=== PATIENT | female | born 2005 | race Caucasian/White ===

== ENCOUNTER 2023-07-19 16:13 | Emergency (ER) | payer BC, SELFPAY ==
[2023-07-19 16:14] VITALS: PULSE 86; RESP 14; TEMP 36.6; O2SAT 100; BMI 30.2
--- NOTE | 2023-07-19 16:42 | EDS_ITS ---
HPI <SIMBA Crow - Last Filed: 07/19/23 19:44> History of Present Illness Chief Complaint: Flank Pain Narrative Narrative: Patient is a 18-year-old female with no significant medical history presents to the [facility] part with 2 days of dysuria, right-sided flank pain. Patient states she drank a bunch of cranberry juice last evening, then had vomiting around for the morning. She states she is having intermittent right-sided flank pain, states she might of had a fever for 2 hours however today she is having no fevers. Patient is concerned she might have a UTI. She is here for evaluation [facility] <SIMBA Crow - Last Filed: 07/19/23 19:44> [facility] Home Medications ondansetron 4 mg disintegrating tablet 4 mg PO Q8H PRN PRN Nausea #10 tabs 07/19/23 [Rx Last Taken Unknown] sulfamethoxazole 800 mg-trimethoprim 160 mg tablet (Bactrim DS) 1 tab PO BID 7 days #14 tabs 07/19/23 [Rx Last Taken Unknown] Allergy/AdvReac Type Severity Reaction Status Date / Time No Known Allergies Allergy Verified 07/19/23 16:14 Social History Smoking Status: Never smoker ROS <SIMBA Crow - Last Filed: 07/19/23 19:44> ROS ED ROS Narrative Constitutional: Negative for fever, chills, weight loss, weakness Eyes: Negative for vision loss, vision change, double vision ENT: Negative for any sore throat, ear pain, congestion Cardiovascular: Negative for any chest pain, tightness, palpitations Respiratory: Negative for any cough, sputum production, hemoptysis, dyspnea, dyspnea on exertion, orthopnea Gastrointestinal: Negative for any abdominal pain, nausea, vomiting, diarrhea, constipation, blood in stool, blood in vomit : Negative for any urinary frequency, retention, blood in urine. No dysuria, right-sided flank pain Muscle skeletal: Negative for any myalgias, arthralgias, neck pain, back pain Neurological: Negative for any headache, syncope, paresthesias, dizziness Skin: Negative for any rashes, lumps, itching, abrasions, lacerations Psychiatric: Negative for any depression, anxiety, stress, suicidal ideation, homicidal ideation Hematologic: Negative for any easy bruising, excessive bruising, easy bleeding Allergies: Negative for any eczema, hives, rash EXAM <SIMBA Crow - Last Filed: 07/19/23 19:44> Physical Exam Narrative Exam Narrative: Vital signs reviewed. HEET: Head normocephalic atraumatic, TMs clear bilaterally. Posterior pharynx is clear, moist mucous membranes. Nares clear bilaterally. Neck: Supple with no lymphadenopathy or tenderness. No signs of meningismus. Cardiac: Regular rate and rhythm no murmurs gallops or rubs, equal peripheral pulses bilaterally. Respiratory: Lungs clear to auscultation bilaterally. No chest tenderness. Abdomen: Soft, nontender, nondistended. No abdominal bruit or pulsatile masses. No hepatosplenomegaly Extremities: No peripheral edema, no signs of gross trauma or deformity. Active full range of motion of all extremities. Neuro: Cranial nerves II through XII intact, no focal neurological deficits. Skin: Clean dry and intact with no rash, purpura, petechiae, vesicles or pustules. Backs/flank: Patient had slight right-sided CVA tenderness. No midline spinal tenderness, no deformity. Psych: Normal mood and affect. No SI, HI or acute psychosis. Const Vital Signs: 07/19/23 16:14 Temperature 97.8 F Temperature Source Temporal Pulse Rate 86 Respiratory Rate 14 Pulse Ox 100 Oxygen Delivery Method Room Air <Dr. Ran Hawkins DO - Last Filed: 07/19/23 22:32> Physical Exam Const Vital Signs: 07/19/23 16:14 Temperature 97.8 F Temperature Source Temporal Pulse Rate 86 Respiratory Rate 14 Pulse Ox 100 Oxygen Delivery Method Room Air [facility] <SIMBA Crow - Last Filed: 07/19/23 19:44> [facility] Lab Data Labs: Laboratory Results - last 24 hr 07/19/23 07/19/23 16:53 19:06 WBC 11.9 H RBC 4.67 Hgb 13.1 Hct 40.0 MCV 85.7 MCH 28.1 MCHC 32.8 RDW Std Deviation 40.0 RDW Coeff of [place] 13.0 Plt Count 307 MPV 10.9 Immature Gran % (Auto) 0.300 Neut % (Auto) 73.7 H Lymph % (Auto) 17.0 L [place] % (Auto) 8.4 Eos % (Auto) 0.3 Baso % (Auto) 0.3 Absolute Neuts (auto) 8.8 H Absolute Lymphs (auto) 2.03 Nucleated RBC % 0 Sodium 139 Potassium 3.6 Chloride 106 Carbon Dioxide 28.0 Anion Gap 5 BUN 10 Creatinine 0.84 Estim Creat Clear Calc 84.49 Est GFR (MDRD) Af Amer 111 Est GFR (MDRD) Non-Af 91 BUN/Creatinine Ratio 11.9 Glucose 99 Calcium 9.9 Serum , Qual NEGATIVE Urine Color SEE COMMENT BELOW Urine Clarity Sl. Cloudy Urine pH 6.0 Ur Specific [place] 1.015 Urine Protein 30 H Urine Glucose (UA) Normal Urine Ketones 5 H Urine Occult Blood 250 H Urine Nitrite Positive H Urine Bilirubin 3 H Urine Urobilinogen 8 H Ur Leukocyte Esterase 500 H Urine RBC 25-50 SEEN Urine WBC 50-100 SEEN Ur Squamous Epith Cells 0-5 SEEN Urine Bacteria RARE Urine Mucus 0 SEEN Radiography Diagnostic Testing: Clinical Impression(s) from Imaging Studies Abdomen/Pelvis CT 07/19/23 19:07 IMPRESSION: No acute appendicitis or bowel obstruction. Right ovarian cyst measuring 1.5 cm, remainder of the pelvic structures unremarkable. Mild fullness of the lymph nodes as described including the retroperitoneum and mesentery most compatible with nonspecific inflammatory response versus sequela of adenitis. Normal abdominal viscera. Electronically Signed: Nita Lang MD at 19:28 EST , Treatment and Re-Evaluation :: Patient appears generally well, patient appears nontoxic, vital signs are stable. Presenting to the emergency department with complaints of right-sided flank pain, dysuria that is been ongoing over the last 2 days. Differential diagnosis includes UTI, pyelonephritis, obstructing uropathy. At this time, basic urinalysis and urine hCG Preg will be completed. Patient's CBC shows a slight leukocytosis white blood count 11.9. Chemistries were unremarkable, serum was negative. Urinalysis will be sent for cu lture but did show rare bacteria moderate leukocytes, positive nitrates 0 blood as well as 25-50 RBCs. Second to this, patient received a CT scan of the abdomen pelvis without contrast is concerning for obstructing uropathy. Patient CT scan showed no acute appendicitis or bowel obstruction. Right ovarian cyst measuring 1.5 cm, mild fullness of the lymph nodes as described including the retroperitoneum and mesentery most compatible with nonspecific inflammatory spots versus sequelae of adenitis. Time, patient be treated with Bactrim twice a day for 7 days, she will maintain hydration, return for any worsening symptoms. All questions answered stable for discharge. <Dr. Ran Hawkins, DO - Last Filed: 07/19/23 22:32> [facility] Narrative Medical decision making narrative: Patient appears generally well, patient appears nontoxic, vital signs are stable. Presenting to the emergency department with complaints of right-sided flank pain, dysuria that is been ongoing over the last 2 days. Differential diagnosis includes UTI, pyelonephritis, obstructing uropathy. At this time, basic urinalysis and urine hCG Preg will be completed. Patient's CBC shows a slight leukocytosis white blood count 11.9. Chemistries were unremarkable, serum was negative. Urinalysis will be sent for culture but did show rare bacteria moderate leukocytes, positive nitrates 2050 blood as well as 25-50 RBCs. Second to this, patient received a CT scan of the abdomen pelvis without contrast is concerning for obstructing uropathy. Patient CT scan showed no acute appendicitis or bowel obstruction. Right ovarian cyst measuring 1.5 cm, mild fullness of the lymph nodes as described including the retroperitoneum and mesentery most compatible with nonspecific inflammatory spots versus sequelae of adenitis. Time, patient be treated with Bactrim twice a day for 7 days, she will maintain hydration, return for any worsening symptoms. All questions answered stable for discharge. Patient presenting with right flank pain she had dysuria as well. No history of kidney stones. She does have hematuria. She is also been taking Pyridium which does make her urine orange/red. Urinalysis shows some evidence of infection. CBC was obtained to assess for blood cell count, hemoglobin, lites. BMP to assess renal function and lites. These were ultimately unremarkable. CT of the abdomen pelvis without contrast shows a right ovarian cyst measuring 1.5 cm as well as some surrounding lymph nodes which could represent sequela of adenitis. Given this it is possible patient could have pyelonephritis with the pain that she is feeling could be from the ovarian cyst. She will be treated with Bactrim. Return precautions were discussed. Impression: 1. Pyelonephritis 2. Right-sided ovarian cyst 3. Hematuria Lab Data Attestation: I reviewed the patient's lab results. Labs: Laboratory Results - last 24 hr 07/19/23 07/19/23 16:53 19:06 WBC 11.9 H RBC 4.67 Hgb 13.1 Hct 40.0 MCV 85.7 MCH 28.1 MCHC 32.8 RDW Std Deviation 40.0 RDW Coeff of [place] 13.0 Plt Count 307 MPV 10.9 Immature Gran % (Auto) 0.300 Neut % (Auto) 73.7 H Lymph % (Auto) 17.0 L [place] % (Auto) 8.4 Eos % (Auto) 0.3 Baso % (Auto) 0.3 Absolute Neuts (auto) 8.8 H Absolute Lymphs (auto) 2.03 Nucleated RBC % 0 Sodium 139 Potassium 3.6 Chloride 106 Carbon Dioxide 28.0 Anion Gap 5 BUN 10 Creatinine 0.84 Estim Creat Clear Calc 84.49 Est GFR (MDRD) Af Amer 111 Est GFR (MDRD) Non-Af 91 BUN/Creatinine Ratio 11.9 Glucose 99 Calcium 9.9 Serum , Qual NEGATIVE Urine Color SEE COMMENT BELOW Urine Clarity Sl. Cloudy Urine pH 6.0 Ur Specific [place] 1.015 Urine Protein 30 H Urine Glucose (UA) Normal Urine Ketones 5 H Urine Occult Blood 250 H Urine Nitrite Positive H Urine Bilirubin 3 H Urine Urobilinogen 8 H Ur Leukocyte Esterase 500 H Urine RBC 25-50 SEEN Urine WBC 50-100 SEEN Ur Squamous Epith Cells 0-5 SEEN Urine Bacteria RARE Urine Mucus 0 SEEN Radiography Diagnostic Testing: Clinical Impression(s) from Imaging Studies Abdomen/Pelvis CT 07/19/23 19:07 IMPRESSION: No acute appendicitis or bowel obstruction. Right ovarian cyst measuring 1.5 cm, remainder of the pelvic structures unremarkable. Mild fullness of the lymph nodes as described including the retroperitoneum and mesentery most compatible with nonspecific inflammatory response versus sequela of adenitis. Normal abdominal viscera. Electronically Signed: Nita Lang MD at 19:28 EST , Discharge Plan Triage Chief Complaint: Flank Pain ED Midlevel Provider: Danilo Mackenzie ED Provider: Ran Hawkins Dx/Rx/DC Orders Clinical Impression: UTI (urinary tract infection), Pyelonephritis Instructions: Hematuria: Possible Causes, Urinary Tract Infections in Women, ED Pyelonephritis, Female (Adult) Prescriptions: New sulfamethoxazole-trimethoprim [Bactrim DS] 800-160 mg tablet 1 tab PO BID 7 Days Qty: 14 0RF ondansetron 4 mg tablet,disintegrating 4 mg PO Q8H PRN PRN (Reason: Nausea) Qty: 10 0RF Activity Restrictions/Additional Instructions: Take antibiotics until finished. Return for any worsening symptoms. Disposition Disposition: Home, Self Care Discharge Date/Time: 07/19/23 20:21
[2023-07-19 17:00] LABS: Mucous, Urine 0 SEEN /hpf (<or=2+)
[2023-07-19 17:30] LABS: Glucose, Dipstick Normal (Normal); Ketone-Dipstick 5 mg/dl (Negative); Leukocyte Esterase-Dipstick 500 /ul (Negative); Nitrite-Dipstick Positive (Negative); Occult Blood-Urine 250 /ul (Negative); Protein-Dipstick 30 mg/dl (Negative); Specific Gravity, Urine 1.015 (1.002-1.030); Urine Clarity Sl. Cloudy (Clear); Urine Urobilinogen 8 mg/dl (Normal)
[2023-07-19 17:35] LABS: Color, Urine SEE COMMENT BELOW (Yellow); Urine Bilirubin Dipstick 3 mg/dL (Negative)
[2023-07-19 17:47] LABS: Internal QC Validated? YES +Cl - CLEAR BKGD; Pregnancy, Serum, hCG Quali. NEGATIVE Negative
[2023-07-19 18:11] LABS: Bacteria RARE /hpf (None Seen); Red Blood Cells-Urine 25-50 SEEN /hpf (0-5); Squamous Epithelial Cells - UA 0-5 SEEN /hpf (5-10); White Blood Cells 50-100 SEEN /hpf (0-5)
--- NOTE | 2023-07-19 19:07 | CT_ITS ---
STUDY: CT ABDOMEN AND PELVIS WITHOUT CONTRAST REASON FOR EXAM: Female, 18 years old. Pain RADIATION DOSAGE (If Supplied By Facility): CTDIvol = ( 15.69 ) mGy, DLP = ( 846.59 ) mGycm TECHNIQUE: Transaxial images were obtained from the dome of the diaphragm to the symphysis pubis without oral contrast, and without intravenous contrast. Sagittal and coronal images were reconstructed. Individualized dose optimization techniques were used for this CT. COMPARISON: None. FINDINGS: Minimal left posterior subpleural atelectasis. Small area of air trapping within the left lung base which may indicate small airway disease. Otherwise lung bases are clear. The visualized portions of the heart are within normal limits. Normal liver. Normal gallbladder and extrahepatic biliary system. Normal spleen. Normal pancreas. Normal bilateral adrenal glands. Normal right kidney. Normal left kidney. Normal visualized stomach. Normal small intestine. Moderate to abundant fecal debris within the colon which may indicate constipation. The appendix is visualized and appears normal. Normal abdominal aorta. Normal inferior vena cava. Normal retroperitoneum. Mild fullness of some of the lymph nodes along the medial aspect of the right colon, central mesentery and periaortic region which may indicate nonspecific inflammatory response versus sequela of mesenteric adenitis. Normal urinary bladder. Anteverted uterus. Right ovarian simple cyst measuring 1.5 cm. Remainder bilateral ovaries unremarkable. Normal abdominal wall. Normal osseous structures. CT/Abdomen/Pelvis without Cont IMPRESSION: No acute appendicitis or bowel obstruction. Right ovarian cyst measuring 1.5 cm, remainder of the pelvic structures unremarkable. Mild fullness of the lymph nodes as described including the retroperitoneum and mesentery most compatible with nonspecific inflammatory response versus sequela of adenitis. Normal abdominal viscera. Electronically Signed: Nita Lang MD at 19:28 EST ,
[2023-07-19 19:13] LABS: Absolute Lymphocyte Count 2.03 X10^3/uL (0.83-4.51); Absolute Neutrophil Count 8.8 X10^3/uL (2.0-7.7); Basophil# 0.04 X10^3/uL; Basophil% 0.3 % (0-1); Eosinophil# 0.04 X10^3/uL; Eosinophils% 0.3 % (0-5); Hemoglobin 13.1 g/dL (12.0-15.0); Lymphocyte # 2.03 X10^3/ul (0.83-4.51); Mean Corp Hgb Conc 32.8 g/dL (32-36); Mean Corpuscular Hgb 28.1 pg (27.0-32.0); Mean Corpuscular Volume 85.7 fL (81-99); Mean Platelet Vol. 10.9 fl (6.2-12.0); Monocyte% 8.4 % (0-10); NRBC Flagged by Analyzer 0 % (0-5); Neutrophil # 8.79 X10^3/uL (2.7-7.7); Neutrophil % 73.7 % (47-70); Platelet Count 307 K/mm3 (150-450); Red Blood Count 4.67 M/mm3 (4.2-5.4); White Blood Count 11.9 K/mm3 (4.4-11.0)
[2023-07-19 19:26] LABS: Anion Gap 5 (5-15); BUN 10 mg/dL (7-18); BUN/Creat Ratio 11.9 RATIO (10-20); Calcium,Total 9.9 mg/dL (8.5-10.1); Chloride 106 mmol/L (98-107); Creatinine, Serum 0.84 mg/dL (0.55-1.02); EST Glomerular Filtration Rate 91 mL/min (>60); Est Glom Filt Rate - Afr Amer 111 mL/min (>60); Estimated Creatinine Clearance 84.49 ml/min; Glucose 99 mg/dL (74-106); Potassium 3.6 mmol/L (3.5-5.1); Sodium Level 139 mmol/L (136-145)
[2023-07-19] MEDS: Ceftriaxone 1 GM/50 ML BAG IV (19:38)
== END 2023-07-19 20:21 | disposition home or self-care (01) ==
PROVIDERS: Nurse Practitioner; Emergency Provider Student in an Organized Health Care Education/Training Program; Visit Provider Student in an Organized Health Care Education/Training Program
DX: N12 Tubulo-interstitial nephritis, not specified as acute or chronic (principal); N83.201 Unspecified ovarian cyst, right side; R31.9 Hematuria, unspecified; N39.0 Urinary tract infection, site not specified
CPT/HCPCS: 74176; 80048; 81001; 84703; 85025; 87086; 87186; 96365; 96375; 99282; A4216